=== PATIENT | male | born 1985 | race Native Hawaiian/Other Pacific Islander ===

== ENCOUNTER 2017-03-11 21:55 | Emergency (ER) | payer SELFPAY ==
[~2017-03-11] VITALS: Ht 167.6 cm; Wt 75.0 kg
[2017-03-11 22:02] VITALS: BP 135/86; PULSE 88; RESP 16; TEMP 98.3; O2SAT 100
[2017-03-11] MEDS ORDERED: LEVE500 PO (22:03)
[2017-03-11] MEDS ORDERED: FOLI400T PO (22:03)
[2017-03-11 22:12] VITALS: RESP 16; O2SAT 98
--- NOTE | 2017-03-11 22:13 | PD ---
HPI Chief Complaint: Seizure Time Seen by Provider: 22:10 Travel History International Travel<30 days: No Contact w/Intl Traveler<30days: No Traveled to known affect area: No History of Present Illness HPI The patient is 31 year old male who presents to the [facility] emergency department with a history of generalized clonic tonic seizure activity that occurred prior to arrival. Upon emergency services record arrival the patient was noted to have a postictal state. The patient became increasingly awake and alert. The patient reports that he is on Keppra 500 mg twice a day. He reports that his last seizure was in August 2016. He reports that he last saw his neurologist in July 2016. He was told that he could follow-up in 1 year. The patient reports that he has a history 2 years ago of being diagnosed with a meningioma and having a surgical resection. He developed complications of brain swelling and was unable to have his skull flap replaced at the conclusion of the surgery. He reports a 2 month later he had the small flap replaced. Subsequent to this effect complications of strabismus involving the right eye and blurry vision. The patient also reports having a complications of seizures. He reports that his meningioma has been stable on repeat MRIs. The patient reports that he is under a great deal of stress and has not been sleeping well. Ports that he has been taking his Keppra as prescribed. He last had a dose earlier this morning. On review of systems, the patient denies any recent fevers, headache, cough, congestion, neck pain, chest pain, shortness of breath, abdominal pain, vomiting, diarrhea, urinary symptoms, or other neurologic symptoms. [facility] Past Medical History Narrative Medical The patient's past medical history is significant for a meningioma, history of seizure disorder, history of strabismus involving the right eye. Past Surgical History Narrative Surgical The patient's past surgical history is significant for a meningioma resection, brain flap replacement. Social History Alcohol Use: No Tobacco Use: No Substance Use: No Allergies-Medications (Allergen,Severity, Reaction): Coded Allergies: No Known Allergies (Unverified , 03/11/17) Reported Meds & Prescriptions Reported Meds & Active Scripts Active Reported Folic Acid 400 Mcg Tab 400 Mcg PO DAILY Keppra (Levetiracetam) 500 Mg Tab 500 Mg PO BID Review of Systems Except as stated in HPI: all other systems reviewed are Neg General / Constitutional: No: Fever Eyes: No: Visual changes HENT: No: Headaches, Neck Stiffness, Neck Pain Cardiovascular: No: Chest Pain or Discomfort Respiratory: No: Shortness of Breath Gastrointestinal: No: Abdominal Pain Genitourinary: No: Dysuria Musculoskeletal: No: Pain Skin: No Rash Neurologic: Positive: Seizures, No: Weakness, Focal Abnormalities, Change in Mentation, Slurred Speech, Sensory Disturbance Psychiatric: No: Depression Endocrine: No: Polydipsia Hematologic/Lymphatic: No: Easy Bruising Physical Exam Narrative General: The patient is a well-developed well-nourished male in no acute distress. Head and Neck exam: Head is normocephalic atraumatic. Eyes: The patient has slightly outward gaze noted that can't be overcome in the right eye, pupils are equal round and reactive to light. Nose: Midline septum with pink mucous membranes Mouth: Dentition unremarkable. Moist mucus membranes. Posterior oropharynx is not erythematous. No tonsillar hypertrophy. Uvula midline. Airway patent. Neck: No palpable lymphadenopathy. No nuchal rigidity. No thyromegaly. Cardiovascular: Regular rate and rhythm without murmurs, gallops, or rubs. Lungs: Clear to auscultation bilaterally. No wheezes, rhonchi, or rales. Abdomen: Soft, without tenderness to palpation in all 4 quadrants of the abdomen. No guarding, rebound, or rigidity. Normal bowel sounds are audible. No tenderness on palpation of McBurney's point. Extremities: No clubbing, cyanosis, or edema. 2+ pulses in all 4 extremities. No calf tenderness on palpation. Back: No costovertebral angle tenderness to palpation. Neurologic Exam: Cranial nerves 2-12 were intact on exam, except for strabismus noted in the right eye which the patient reports is chronic. Strength is 5/5 in all 4 extremities. No sensory deficits noted. Skin Exam: No rash noted. Intact skin that is warm and dry. Data Data Last Documented VS Vital Signs Date Time Temp Pulse Resp B/P Pulse Ox O2 Delivery O2 Flow Rate FiO2 03/11/17 22:12 16 98 Room Air 03/11/17 22:02 98.3 88 135/86 Orders Complete Blood Count With Diff (03/11/17 22:10) Comprehensive Metabolic Panel (03/11/17 22:10) Magnesium (Mg) (7/3/17 22:10) Ct Brain W/O Iv Contrast(Rout) (03/11/17 22:10) Iv Access Insert/Monitor (03/11/17 22:10) Ecg Monitoring (03/11/17 22:10) Oximetry (03/11/17 22:10) Mri Brain W&W/O Contrast (03/11/17 23:22) Labs Laboratory Tests Test 03/11/17 22:13 White Blood Count 10.4 TH/MM3 Red Blood Count 5.36 MIL/MM3 Hemoglobin 14.4 GM/DL Hematocrit 43.2 % Mean Corpuscular Volume 80.6 FL Mean Corpuscular Hemoglobin 26.9 PG Mean Corpuscular Hemoglobin 33.4 % Concent Red Cell Distribution Width 14.2 % Platelet Count 257 TH/MM3 Mean Platelet Volume 7.8 FL Neutrophils (%) (Auto) 56.1 % Lymphocytes (%) (Auto) 33.3 % Monocytes (%) (Auto) 6.7 % Eosinophils (%) (Auto) 3.3 % Basophils (%) (Auto) 0.6 % Neutrophils # (Auto) 5.8 TH/MM3 Lymphocytes # (Auto) 3.4 TH/MM3 Monocytes # (Auto) 0.7 TH/MM3 Eosinophils # (Auto) 0.3 TH/MM3 Basophils # (Auto) 0.1 TH/MM3 CBC Comment DIFF FINAL Differential Comment Sodium Level 140 MEQ/L Potassium Level 3.4 MEQ/L Chloride Level 104 MEQ/L Carbon Dioxide Level 24.2 MEQ/L Anion Gap 12 MEQ/L Blood Urea Nitrogen 17 MG/DL Creatinine 0.72 MG/DL Estimat Glomerular Filtration 126 ML/MIN Rate Random Glucose 84 MG/DL Calcium Level 8.8 MG/DL Magnesium Level 1.9 MG/DL Total Bilirubin 0.3 MG/DL Aspartate Amino Transf 13 U/L (AST/SGOT) Alanine Aminotransferase 39 U/L (ALT/SGPT) Alkaline Phosphatase 71 U/L Total Protein 8.0 GM/DL Albumin 4.0 GM/DL [facility] Medical Decision Making Medical Screen Exam Complete: Yes Emergency Medical Condition: Yes Medical Record Reviewed: Yes Interpretation(s) Last Impressions Head CT 03/11/172209 Signed Impressions: Service Date/Time: Saturday, March 11, 2017 22:27 - CONCLUSION: Multiple low density areas in the supratentorial brain, the largest of which is adjacent to a large craniotomy defect and probably related to prior surgery. The other 3 areas of hypodensity are unrelated to the craniotomy location and are of uncertain significance. One appears extra-axial (left frontal) and the other 2 hypodense areas appear intra-axial (both located in the occipital lobes). Comparison to prior cranial imaging studies would be very helpful. In the absence of such, may consider performing an MRI of the brain with and without contrast to characterize the abnormalities unrelated to the craniotomy. Antonio Love MD Differential Diagnosis Lowered seizure threshold with seizure activity related to medication noncompliance, versus decreased sleep, versus increased stress, versus electrolyte abnormality Narrative Course During the course of the patients emergency department visit, the patients history, examination, and differential diagnosis were reviewed with the patient. The patient had IV access obtained and blood work sent for analysis. The patient was placed on a director digital strategy with oximetry and blood pressure monitoring. The patient had an ECG done on arrival. The patient's ECG reveals a heart rate that is a sinus rhythm heart rate of 78, moderate intraventricular conduction delay with QRS duration of 112 ms, QTC 379 ms, T waves are inverted in lead 3, V1. The patients laboratory studies were reviewed and remarkable for a white count 10.4, hemoglobin 14.4, platelets 257 with a normal differential, CMP is remarkable for potassium of 3.4, AST 13 Radiology studies were reviewed and remarkable for a CT scan of the brain that shows multiple low density areas in the supratentorial brain the largest of which is adjacent to a large craniectomy defect and probably related to prior surgery. The other 3 areas of hypodensity are unrelated to the craniotomy location and are of uncertain significance. One appears extra-axial on the left frontal and the other 2 hypodense areas appear intra-axial both located in the occipital lobes. Comparison to prior cranial imaging studies would be very helpful. In the absence of such may consider performing an MRI of the brain with and without contrast to characterize the abnormalities unrelated to the craniotomy. I went to discuss this further with the patient. He reports that he was not aware of having any occipital abnormalities or other masses. I explained that I was ordering an MRI to further delineate this as this could be the cause of the patient's progressive vision problems. Unfortunately, while the patient was awaiting MRI, the patient then decided that he did not want to spend the money to have the imaging done. He prefers to follow-up with his doctor in [place]. I explained to the patient that these findings could be the cause of the patient's progressive vision problems and that further imaging would be indicated at this time. The patient has decided to leave AGAINST MEDICAL ADVICE prior to completion of his workup. AMA: The risks of leaving against medical advice without further evaluation treatment were discussed with the patient. These risks include progressive disability, versus complete vision loss, versus possible stroke or . The patient indicated understanding of these risks and appeared to have the capacity to make this decision. The patient was instructed to follow-up with his neurologist in the morning by phone. He is instructed to notify his neurologist this emergency department visit in this breakthrough seizure. Diagnosis Primary Impression: Seizure disorder Referrals: Neurosurgeon 1 day Patient Instructions: Epilepsy (ED), General Instructions Med/Other Pt SpecificInfo: No Change to Meds Disposition: 07 AGAINST MEDICAL ADVICE Condition: Janee Askew MD Mar 11, 2017 22:13
[2017-03-11 22:44] LABS: AUTOMATED NEUTROPHIL # 5.8 TH/MM3 (1.8-7.7); BASOPHIL # 0.1 TH/MM3 (0-0.2); BASOPHIL % 0.6 % (0.0-2.0); EOSINOPHIL # 0.3 TH/MM3 (0-0.4); EOSINOPHIL % 3.3 % (0.0-4.0); HEMATOCRIT 43.2 % (39.0-51.0); HEMO FLAGS DIFF FINAL; LYMPH % 33.3 % (9.0-44.0); LYMPHOCYTE # 3.4 TH/MM3 (1.0-4.8); MEAN CELL VOLUME 80.6 FL (80.0-100.0); MEAN CORPUSCULAR HEMOGLOBIN 26.9 PG (27.0-34.0); MEAN CORPUSCULAR HGB CONC 33.4 % (32.0-36.0); MONO % 6.7 % (0.0-8.0); NEUT % 56.1 % (16.0-70.0); PLATELET COUNT 257 TH/MM3 (150-450); RED BLOOD COUNT 5.36 MIL/MM3 (4.50-5.90); RED CELL DISTRIBUTION WIDTH 14.2 % (11.6-17.2); WHITE BLOOD COUNT 10.4 TH/MM3 (4.0-11.0)
--- NOTE | 2017-03-11 22:47 | RADRPT ---
EXAM DATE/TIME: 03/11/2017 22:27 [facility] COMPARISON: No previous studies available for comparison. INDICATIONS : Seizures. RADIATION DOSE: 50.62 CTDIvol (mGy) MEDICAL HISTORY : Seizures. Meningioma SURGICAL HISTORY : Craniotomy. ENCOUNTER: Initial ACUITY: 1 day PAIN SCALE: 0/10 LOCATION: cranial TECHNIQUE: Multiple contiguous axial images were obtained of the head. Using automated exposure control and adj ustment of the mA and/or kV according to patient size, radiation dose was kept as low as reasonably a chievable to obtain optimal diagnostic quality images. DICOM format image data is available electro nically for review and comparison. FINDINGS: The patient has had prior surgery with left frontal parietal craniotomy and approximation of cranioto my flap. A large area of encephalomalacia in the left frontal parietal mid and high convexity beneat h the craniotomy flap. There is also a crescentic shape hypodensity in the mid convexity left fronta l region which measures 1.0 cm in dimension. This appears to be extra-axial and has a CT density sim ilar to CSF. There is mild ex vacuo enlargement of the frontal horn on the left side. There is a prominent area of decreased attenuation in the mid convexity right paramedial occipital lo be measuring 2.5 cm with irregular margination. There is a similar appearing hypodensity in the left high convexity occipital region measuring 2.4 cm. The posterior fossa structures are grossly intact. The visualized portion of the orbits and paranasa l sinuses are intact. CONCLUSION: Multiple low density areas in the supratentorial brain, the largest of which is adjacent to a large c raniotomy defect and probably related to prior surgery. The other 3 areas of hypodensity are unrelat ed to the craniotomy location and are of uncertain significance. One appears extra-axial (left front al) and the other 2 hypodense areas appear intra-axial (both located in the occipital lobes). Compar zahraa to prior cranial imaging studies would be very helpful. In the absence of such, may consider pe rforming an MRI of the brain with and without contrast to characterize the abnormalities unrelated to the craniotomy. Antonio Love MD on March 11, 2017 at 22:39 Board Certified Radiologist. This report was verified electronically.
[2017-03-11 23:05] LABS: ALT (GPT) 39 U/L (12-78); ANION GAP 12 MEQ/L (5-15); AST (GOT) 13 U/L (15-37); BICARBONATE 24.2 MEQ/L (21.0-32.0); BLOOD UREA NITROGEN 17 MG/DL (7-18); CHLORIDE 104 MEQ/L (98-107); GLOMERULAR FILTRATION RATE 126 ML/MIN (>89); MAGNESIUM 1.9 MG/DL (1.5-2.5); POTASSIUM 3.4 MEQ/L (3.5-5.1); SODIUM (NA) 140 MEQ/L (136-145)
[2017-03-11 23:08] LABS: ALKALINE PHOSPHATASE 71 U/L (45-117); TOTAL BILIRUBIN ADULT 0.3 MG/DL (0.2-1.0)
[2017-03-12 00:18] VITALS: BP 138/84; PULSE 88; RESP 16; O2SAT 98
--- NOTE | 2017-03-12 13:16 | EKG ---
Date Performed: 03/11/2017 Time Performed: 22:11:11 PTAGE: 31 years EKG: Sinus rhythm MODERATE INTRAVENTRICULAR CONDUCTION DELAY BORDERLINE ECG NO PREVIOUS TRACING DOCTOR: Jose Daniel Hoff Interpretating Date/Time 03/12/2017 13:12:32
== END 2017-03-12 00:36 | disposition left against medical advice (07) ==
LOC: NEPC 21:55
DX: R56.9 Unspecified convulsions (principal); D32.9 Benign neoplasm of meninges, unspecified; Z53.20 Procedure and treatment not carried out because of patient's decision for unspecified reasons; Z98.890 Other specified postprocedural states
CPT/HCPCS: 70450; 80053; 83735; 85025; 93005